=== PATIENT | female | born 1970 | race Caucasian/White ===

== ENCOUNTER → 2016-08-09 | Outpatient (CLI) | payer OTHER ==
--- NOTE | 2016-08-09 10:42 | US ---
Ultrasound and Venous Duplex Doppler Study of Left Lower Extremity History: Left calf pain x3 weeks Technique: High frequency transducer was used for imaging and Doppler study of the veins of the lowe r extremity. Pulsed Doppler and color Doppler were utilized, along with various maneuvers to assess flow in the veins. Findings: There is superficial thrombus in the medial lateral calf gastric veins. The deep veins of the lower extremity are normally compressible between the groin and the upper calf and have normal D oppler waveforms within them. No deep venous thrombosis is identified. There is no Chance cyst. Impression: 1. Superficial calf thrombophlebitis. 2. No evidence of deep vein thrombosis. Results called to Dr. Cornell Wellington.
== END ==
LOC: BMCIMAGING 08:46
PROVIDERS: ATTEND Family Medicine
DX: I80.02 Phlebitis and thrombophlebitis of superficial vessels of left lower extremity (principal)

== ENCOUNTER → 2017-12-18 | Outpatient (CLI) | payer OTHER | LOC: BMCIMAGING 13:47 | PROVIDERS: ATTEND Family Medicine | DX: Z12.31 Encounter for screening mammogram for malignant neoplasm of breast (principal); Z80.3 Family history of malignant neoplasm of breast ==